=== PATIENT | female | born 1970 | race Caucasian/White ===

== ENCOUNTER 2020-07-02 03:47 | Emergency (ER) | payer BC ==
[2020-07-02] MEDS ORDERED: KETOROLAC TROMETHAMINE INJ 30 MG/ML VIAL IV ONE (04:11)
[2020-07-02] MEDS ORDERED: SODIUM CHLORIDE 0.9% 1000ML 1,000 ML IVS ONE (04:11)
[2020-07-02] MEDS ORDERED: PROMETHAZINE HCL INJ 25 MG in SODIUM CHLORIDE 0.9% 50ML 50 ML IVPB ONE (04:11)
--- NOTE | 2020-07-02 05:37 | CT ---
CT ABDOMEN AND PELVIS WITHOUT CONTRAST CLINICAL HISTORY: hematuria, nv, rt flank pain COMPARISON: None. TECHNIQUE: Axial unenhanced CT imaging of the abdomen and pelvis performed. Reformatted coronal and sagittal images reviewed. A dose reduction technique was utilized with automated exposure control according to patient size. FINDINGS: Mild dependent subpleural atelectasis in both lung bases. The heart is normal in size. Unremarkable liver, gallbladder, spleen, pancreas, adrenal glands. Normal left kidney. There is a nonobstructing 3 mm upper right renal pelvic stone. There is mild fullness of the right renal pelvis. AP pelvis is 9 mm. Asymmetric dilatation of the right ureter with a 3 mm distal right ureteral stone seen on axial image 151 of series 2. Normal caliber aorta and inferior vena cava. No retroperitoneal lymphadenopathy. Normal stomach and small bowel loops. Appendix is questionably seen in the right lower quadrant. No evidence of appendicitis. Unremarkable colon. There is no free air. No ascites. Unremarkable bladder. No bladder stone. No bladder wall thickening. No adjacent edema. Normal uterus. Unremarkable ovaries. Minimal pelvic free fluid. Normal lumbosacral alignment. No subluxation. Intact bony pelvis. Normal hips. Unremarkable soft tissues. IMPRESSION: 1. Mild right hydronephrosis and ureteral dilatation secondary to a 3 mm distal right ureteral stone. A nonobstructing 3 mm upper right renal pelvic stone is also present. 2. Trace pelvic free fluid. Electronically signed by: Gala Morin DO 07/02/2020 5:36 AM [employer]
--- NOTE | 2020-07-02 06:24 | ED.PDOC ---
History of Present Illness - General Chief Complaint: Back Pain or Injury Stated Complaint: nausea, Right lateral side. Time Seen by Provider: 07/02/20 04:10 Source: patient Exam Limitations: no limitations - History of Present Illness Initial Comments: The patient is a 49-year-old female presented emergency room secondary to nausea vomiting starting around midnight. No fever. No diarrhea. No history of pancreatitis. No sick contacts. She has had kidney stone in the past. It did start with right flank pain. No urinary symptoms. Timing/Duration: 4-6 hours Severity: severe Improving Factors: nothing Worsening Factors: nothing Associated Symptoms: loss of appetite, malaise, nausea/vomiting Allergies/Adverse Reactions: Allergies NO KNOWN ALLERGY Allergy (Verified 07/02/20 05:32) Home Medications: Ambulatory Orders Ondansetron Odt [Zofran ODT] 4 mg PO Q8HR PRN #5 tab 07/02/20 Tamsulosin HCl [Flomax] 0.4 mg PO DAILY #5 cap 07/02/20 Review of Systems - Review of Systems Constitutional: States: no symptoms reported EENTM: States: no symptoms reported Respiratory: States: no symptoms reported Cardiology: States: no symptoms reported Gastrointestinal/Abdominal: States: nausea, vomiting Musculoskeletal: States: back pain Skin: States: no symptoms reported Neurological: States: no symptoms reported Endocrine: States: no symptoms reported All other Systems: No Change from Baseline Past Medical History (General) - Patient Medical History Hx Asthma: No Hx Cardiac Disorders: No Hx Hypertension: No Hx Diabetes: No Surgical History: other - Vaccination History Hx Tetanus, Diphtheria Vaccination: No Hx Influenza Vaccination: Yes Hx Pneumococcal Vaccination: No - Social History Hx Tobacco Use: No Hx Alcohol Use: No Family Medical History - Family History Father Hx Family Hypertension: Yes Hx Family;Other: high cholesterol Physical Exam - Physical Exam General Appearance: Alert, Ill Appearing Eye Exam: bilateral normal Ears, Nose, Throat: hearing grossly normal, normal pharynx Neck: full range of motion, supple Respiratory: no respiratory distress, no accessory muscle use Cardiovascular/Chest: normal peripheral pulses, no edema, other - Regular rate Peripheral Pulses: radial,right: 2+, radial,left: 2+ Gastrointestinal/Abdominal: non tender, soft Rectal Exam: deferred Back Exam: no CVA tenderness, no vertebral tenderness Extremity: non-tender, normal inspection, no pedal edema, normal capillary refill 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 It is a 3 mm stone and should likely finish passing on its own. She is to keep her self well-hydrated. She will be placed on Flomax for the next 5 days. Motrin or Aleve can be used for discomfort. ER warnings are given. She will be written for Zofran additionally for nausea vomiting if needed. jack benton [phone] - Results/Orders Results/Orders: Laboratory Tests 07/02/20 07/02/20 07/02/20 04:20 04:20 04:20 WBC 9.4 RBC 4.24 Hgb 13.8 Hct 39.6 MCV 93.2 MCH 32.4 H MCHC 34.8 RDW 13.1 Plt Count 169 MPV 8.6 Absolute Neuts (auto) 8.30 H Absolute Lymphs (auto) 0.70 L Absolute Monos (auto) 0.30 Absolute Eos (auto) 0.00 Absolute Basos (auto) 0.10 Neutrophils % 88.5 H Lymphocytes % 7.1 L Monocytes % 3.3 Eosinophils % 0.4 L Basophils % 0.7 D-Dimer, Quantitative Sodium 140 Potassium 4.2 Chloride 103 Carbon Dioxide 24 Anion Gap 17.2 BUN 16 Creatinine 0.85 BUN/Creatinine Ratio 18.8 Random Glucose 158 H Serum Osmolality 283.9 Calcium 9.3 Magnesium 2.0 Total Bilirubin 0.6 AST 31 ALT 28 Alkaline Phosphatase 99 Creatine Kinase 71 CK-MB (CK-2) 1.0 CK-MB (CK-2) % Not Reportable Troponin I < 0.02 C-Reactive Protein Serum Total Protein 7.6 Albumin 4.5 Globulin 3.1 Albumin/Globulin Ratio 1.5 Amylase 84 Lipase 34 Serum HCG, Qual Urine Color Urine Appearance Urine pH Ur Specific [place] Urine Protein Urine Glucose (UA) Urine Ketones Urine Blood Urine Nitrite Urine Bilirubin Urine Urobilinogen Ur Leukocyte Esterase Urine RBC Urine WBC Ur Epithelial Cells Urine Bacteria Urine Mucus 07/02/20 07/02/20 07/02/20 04:20 04:20 04:20 WBC RBC Hgb Hct MCV MCH MCHC RDW Plt Count MPV Absolute Neuts (auto) Absolute Lymphs (auto) Absolute Monos (auto) Absolute Eos (auto) Absolute Basos (auto) Neutrophils % Lymphocytes % Monocytes % Eosinophils % Basophils % D-Dimer, Quantitative < 131.0 L Sodium Potassium Chloride Carbon Dioxide Anion Gap BUN Creatinine BUN/Creatinine Ratio Random Glucose Serum Osmolality Calcium Magnesium Total Bilirubin AST ALT Alkaline Phosphatase Creatine Kinase CK-MB (CK-2) CK-MB (CK-2) % Troponin I C-Reactive Protein Serum Total Protein Albumin Globulin Albumin/Globulin Ratio Amylase Lipase Serum HCG, Qual Negative Urine Color Yellow Urine Appearance Cloudy Urine pH 6.5 Ur Specific [place] >= 1.030 Urine Protein Trace Urine Glucose (UA) Negative Urine Ketones 80 H Urine Blood Moderate H Urine Nitrite Negative Urine Bilirubin Small H Urine Urobilinogen 0.2 Ur Leukocyte Esterase Negative Urine RBC 40-50 H Urine WBC 0-1 Ur Epithelial Cells 3-5 Urine Bacteria Rare Urine Mucus Moderate 07/02/20 04:20 WBC RBC Hgb Hct MCV MCH MCHC RDW Plt Count MPV Absolute Neuts (auto) Absolute Lymphs (auto) Absolute Monos (auto) Absolute Eos (auto) Absolute Basos (auto) Neutrophils % Lymphocytes % Monocytes % Eosinophils % Basophils % D-Dimer, Quantitative Sodium Potassium Chloride Carbon Dioxide Anion Gap BUN Creatinine BUN/Creatinine Ratio Random Glucose Serum Osmolality Calcium Magnesium Total Bilirubin AST ALT Alkaline Phosphatase Creatine Kinase CK-MB (CK-2) CK-MB (CK-2) % Troponin I C-Reactive Protein < 0.8 Serum Total Protein Albumin Globulin Albumin/Globulin Ratio Amylase Lipase Serum HCG, Qual Urine Color Urine Appearance Urine pH Ur Specific [place] Urine Protein Urine Glucose (UA) Urine Ketones Urine Blood Urine Nitrite Urine Bilirubin Urine Urobilinogen Ur Leukocyte Esterase Urine RBC Urine WBC Ur Epithelial Cells Urine Bacteria Urine Mucus CT scan abdomen pelvis without contrast shows a 3 mm stone in the distal right ureter. See report for details. Departure - Departure Clinical Impression: Ureterolithiasis, Dehydration, mild Disposition: Discharge to Home or Self Care Condition: Fair Departure Forms: ED Discharge - Pt. Copy, Patient Portal Self Enrollment Instructions: DI for Low Back Pain, Renal Colic (DC), Kidney Stones (DC) Diet: regular diet Activity: increase activity as tolerated Prescriptions: Ondansetron Odt [Zofran ODT] 4 mg PO Q8HR PRN #5 tab PRN Reason: Nausea--Moderate Tamsulosin HCl [Flomax] 0.4 mg PO DAILY #5 cap Home Medications: Ambulatory Orders Ondansetron Odt [Zofran ODT] 4 mg PO Q8HR PRN #5 tab 07/02/20 Tamsulosin HCl [Flomax] 0.4 mg PO DAILY #5 cap 07/02/20 Additional Instructions: The patient is a 49-year-old female presented to emergency room secondary to pain and nausea and vomiting from a kidney stone passing through the right ureter. It is a 3 mm stone and should likely finish passing on its own. She is to keep her self well-hydrated. She will be placed on Flomax for the next 5 days. Motrin or Aleve can be used for discomfort. ER warnings are given. She will be written for Zofran additionally for nausea vomiting if needed.
[2020-07-02 06:36] VITALS: BP 96/62; TEMP 97.6; O2SAT 98
== END 2020-07-02 06:34 | disposition home or self-care (01) ==
LOC: ER 03:47
DX: N13.2 Hydronephrosis with renal and ureteral calculous obstruction (principal); E86.0 Dehydration; Z87.442 Personal history of urinary calculi
CPT/HCPCS: 74176; 80053; 81001; 82150; 82550; 82553; 83690; 83735; 84484; 84703; 85025; 85379; 86140; A4216; J1885; J2550; J7030